=== PATIENT | male | born 1945 | race Two or more races ===

== ENCOUNTER 2021-10-24 09:18 | Inpatient (IN) | payer OTHER ==
[~2021-10-24] VITALS: Ht 175.3 cm; Wt 97.0 kg
[2021-10-24 10:46] LABS: Basophils # (auto) 0.1 10 ^3/uL (0-0.2); Basophils % (auto) 1.2 % (0.0-2.0); Eosinophils # (auto) 0 10 ^3/uL (0-0.8); Hematocrit 39.6 % (41.0-53.0); Lymphocytes # (auto) 0.5 10 ^3/uL (0.4-5.4); Mean Corpuscular Hgb Conc. 35.2 g/dL (32.0-36.0); Mean Corpuscular Volume 93.6 fL (80.0-100.0); Monocytes # (auto) 0.3 10 ^3/uL (0-1.3); Monocytes % (auto) 4.8 % (0.0-12.0); Neutrophils # (auto) 5.7 10 ^3/uL (1.6-8.6); Red Blood Cells 4.23 10^6/uL (4.5-5.90); Red Cell Distribution Width 12.7 % (11.8-14.3); White Blood Cell 6.5 10^3/uL (4.4-10.8)
[2021-10-24 11:02] LABS: Albumin 2.8 g/dL (3.4-5.0); Calcium 8.1 mg/dL (8.5-10.1); Potassium 4.2 mmol/L (3.5-5.1)
[2021-10-24 11:05] LABS: BUN/Creatinine Ratio 14.5; Bilirubin, Total 0.5 mg/dL (0.2-1.0); Total Protein 6.7 g/dL (6.4-8.2)
[2021-10-24] MEDS ORDERED: cefTRIAXone 1GM/50ML D5W 50 ML IV ONE (11:45)
[2021-10-24] MEDS ORDERED: AZITHROMYCIN 500MG/ 250ML 250 ML IV ONE (11:45)
[2021-10-24] MEDS ORDERED: DexAMETHasone SOD PHOS 10MG/1ML VIAL INJ IV ONE (11:45)
[2021-10-24] MEDS ORDERED: MORPHINE SULFATE INJECTION 2 MG/ML SYRG IV PRN ×3 (13:15→18:00)
[2021-10-24] MEDS ORDERED: NITROGLYCERIN 0.4 MG SL TAB SL PRN ×2 (13:15→18:00)
[2021-10-24] MEDS ORDERED: ALUM & MAG HYDROX-SIMETH LIQ(MAALOX) 30 ML PO PRN (18:00)
[2021-10-24] MEDS ORDERED: ONDANSETRON HCL 4 MG/2 ML VIAL IV PRN (18:00)
[2021-10-24] MEDS ORDERED: HYDROcodone-ACET 5/325MG TAB PO PRN (18:00)
[2021-10-24] MEDS ORDERED: DOCUSATE SOD 100 MG CAP PO PRN (18:00)
[2021-10-24] MEDS ORDERED: ACETAMINOPHEN 500 MG TAB PO PRN (18:00)
[2021-10-24] MEDS ORDERED: REMDESIVIR PER PHARMACY 0 ML IV SCH (18:00)
[2021-10-24] MEDS: CHOLECALCIFEROL (VITD3) 2,000 UNIT CAP/TAB PO SCH (18:11)
[2021-10-24] MEDS: ASCORBIC ACID 1,000 MG TAB PO SCH (18:11)
[2021-10-24] MEDS: ZINC SULFATE 220mg CAP or TAB PO SCH (18:11)
[2021-10-24] MEDS: FUROSEMIDE 20 MG/2 ML VIAL IV SCH (18:14)
[2021-10-24] MEDS ORDERED: DEXTROSE (50%) 50ML SYRG IV PRN (18:15)
[2021-10-24] MEDS ORDERED: METOPROLOL SUCCINATE XL 50 MG TAB PO ONE (18:15)
[2021-10-24] MEDS ORDERED: FAMOTIDINE (10MG/ML) 2ML VL IV ONE (18:15)
[2021-10-24 18:54] LABS: Basophils # (auto) 0 10 ^3/uL (0-0.2); Basophils % (auto) 0.6 % (0.0-2.0); Eosinophils # (auto) 0 10 ^3/uL (0-0.8); Hematocrit 38.8 % (41.0-53.0); Hemoglobin 13.4 g/dL (13.5-17.5); Lymphocytes # (auto) 0.2 10 ^3/uL (0.4-5.4); Mean Corpuscular Hemoglobin 32.5 pg (28.0-32.0); Mean Corpuscular Hgb Conc. 34.5 g/dL (32.0-36.0); Mean Corpuscular Volume 94.3 fL (80.0-100.0); Monocytes # (auto) 0.2 10 ^3/uL (0-1.3); Monocytes % (auto) 3.6 % (0.0-12.0); Neutrophils # (auto) 5.2 10 ^3/uL (1.6-8.6); Neutrophils % (auto) 91.8 % (37.0-80.0); Nucleated Red Blood Cells % 0.1 %; Red Blood Cells 4.11 10^6/uL (4.5-5.90); Red Cell Distribution Width 12.7 % (11.8-14.3); White Blood Cell 5.6 10^3/uL (4.4-10.8)
[2021-10-24 19:13] LABS: Lactic Acid w/Reflex 2.2 mmol/L (0.4-2.0); Potassium 4.6 mmol/L (3.5-5.1)
[2021-10-24 19:23] LABS: Cholesterol 62 mg/dL (< 200)
[2021-10-24 19:24] LABS: Albumin 2.5 g/dL (3.4-5.0); BUN/Creatinine Ratio 15.3; Bilirubin, Total 0.3 mg/dL (0.2-1.0); CRP High Sensitivity 8.57 mg/dL (< 0.3); Calcium 7.6 mg/dL (8.5-10.1); Total Protein 6.3 g/dL (6.4-8.2)
[2021-10-24 19:25] LABS: Thyroid Stimulating Hormone 0.5 uIU/mL (0.358-3.74)
[2021-10-24 19:28] LABS: HDL Cholesterol 28 mg/dL (40-59); LDL Cholesterol 30 mg/dL (< 100); Triglycerides 87 mg/dL (< 150)
[2021-10-24 20:00] VITALS: BP 117/64
[2021-10-24] MEDS ORDERED: REMDESIVIR 200 MG in NS 210ml LOADING DOSE ADULT IV ONE (20:00)
[2021-10-24] MEDS: BUDESONIDE (INHALATION) 180 MCG IH IN SCH (21:37)
[2021-10-24] MEDS: ALBUTEROL SULF HFA 90MCG INH 200DOSE IN PRN (21:37)
[2021-10-24 22:00] VITALS: BP 117/64
[2021-10-24] MEDS ORDERED: TEMAZEPAM 15 MG CAP PO PRN (22:00)
[2021-10-24] MEDS: DOXYCYCLINE 100MG/250ML 250 ML IV SCH (22:00)
[2021-10-24] MEDS: ATORVASTATIN 20 MG TAB PO SCH (22:17)
[2021-10-24] MEDS: POTASSIUM CHL 20 Meq TABLET PO SCH (22:17)
[2021-10-24] MEDS: ENOXAPARIN SOD 40 MG/0.4 ML SYRINGE SC SCH (22:18)
[2021-10-24] MEDS: ACCU-CHEK COMFORT CURVE STRIP VI SCH (22:19)
[2021-10-24] MEDS: InsuLIN REG 1unit/0.01ml Soln (100units/ml) SC SCH (22:30)
[2021-10-25] VITALS (7 sets, daily range): BP systolic 122–133; BP diastolic 61–69
[2021-10-25] MEDS: ALBUTEROL SULF HFA 90MCG INH 200DOSE IN PRN ×2 (06:00→19:33)
[2021-10-25] MEDS: FUROSEMIDE 20 MG/2 ML VIAL IV SCH ×2 (06:00→18:00)
[2021-10-25] MEDS: BUDESONIDE (INHALATION) 180 MCG IH IN SCH ×2 (06:00→19:33)
[2021-10-25] MEDS: ACCU-CHEK COMFORT CURVE STRIP VI SCH ×4 (06:36→22:16)
[2021-10-25] MEDS: InsuLIN REG 1unit/0.01ml Soln (100units/ml) SC SCH ×4 (06:40→22:19)
[2021-10-25 07:18] LABS: Albumin 2.4 g/dL (3.4-5.0); BUN/Creatinine Ratio 16.9; Calcium 8.2 mg/dL (8.5-10.1); Potassium 4.6 mmol/L (3.5-5.1)
[2021-10-25 07:19] LABS: Basophils # (auto) 0 10 ^3/uL (0-0.2); Basophils % (auto) 0.7 % (0.0-2.0); Eosinophils # (auto) 0 10 ^3/uL (0-0.8); Hematocrit 39.1 % (41.0-53.0); Hemoglobin 13.4 g/dL (13.5-17.5); Lymphocytes # (auto) 0.4 10 ^3/uL (0.4-5.4); Lymphocytes % (auto) 8.2 % (10.0-50.0); Mean Corpuscular Hemoglobin 32.6 pg (28.0-32.0); Mean Corpuscular Hgb Conc. 34.3 g/dL (32.0-36.0); Mean Corpuscular Volume 95.1 fL (80.0-100.0); Monocytes # (auto) 0.4 10 ^3/uL (0-1.3); Monocytes % (auto) 7.2 % (0.0-12.0); Neutrophils # (auto) 4.6 10 ^3/uL (1.6-8.6); Neutrophils % (auto) 83.9 % (37.0-80.0); Nucleated Red Blood Cells % 0.2 %; Red Blood Cells 4.11 10^6/uL (4.5-5.90); Red Cell Distribution Width 12.4 % (11.8-14.3); White Blood Cell 5.4 10^3/uL (4.4-10.8)
[2021-10-25 07:21] LABS: Bilirubin, Total 0.4 mg/dL (0.2-1.0); Total Protein 6.3 g/dL (6.4-8.2)
[2021-10-25] MEDS ORDERED: GLIP10TA9 PO (08:19)
[2021-10-25] MEDS ORDERED: ASPI1TAB20 PO (08:19)
[2021-10-25] MEDS ORDERED: LISI-716 PO (08:19)
[2021-10-25] MEDS ORDERED: METO25TA5 PO (08:19)
[2021-10-25] MEDS ORDERED: ROSU10TA16 PO (08:19)
[2021-10-25] MEDS: DexAMETHasone SOD PHOS 10MG/1ML VIAL INJ IV SCH (10:37)
[2021-10-25] MEDS: DOXYCYCLINE 100MG/250ML 250 ML IV SCH ×2 (10:37→22:15)
[2021-10-25] MEDS: ASPirin 81 mg TAB PO SCH (10:38)
[2021-10-25] MEDS: BENAZEPRIL HCL 10 MG TAB PO SCH (10:38)
[2021-10-25] MEDS: POTASSIUM CHL 20 Meq TABLET PO SCH ×2 (10:38→22:16)
[2021-10-25] MEDS: IVERMECTIN 3 MG TAB PO SCH (10:39)
[2021-10-25] MEDS: CHOLECALCIFEROL (VITD3) 2,000 UNIT CAP/TAB PO SCH (10:39)
[2021-10-25] MEDS: ASCORBIC ACID 1,000 MG TAB PO SCH (10:39)
[2021-10-25] MEDS: ENOXAPARIN SOD 40 MG/0.4 ML SYRINGE SC SCH ×2 (10:39→22:16)
[2021-10-25] MEDS: FAMOTIDINE (10MG/ML) 2ML VL IV SCH (11:21)
[2021-10-25] MEDS: METOPROLOL SUCCINATE XL 50 MG TAB PO SCH (11:22)
[2021-10-25] MEDS: ZINC SULFATE 220mg CAP or TAB PO SCH (12:40)
[2021-10-25] MEDS: REMDESIVIR 100mg 100 MG in SODIUM CHL 0.9% 230 ML IV SCH (15:43)
[2021-10-25] MEDS: ATORVASTATIN 20 MG TAB PO SCH (22:16)
[2021-10-26] VITALS (7 sets, daily range): BP systolic 108–144; BP diastolic 68–81
[2021-10-26] MEDS: FUROSEMIDE 20 MG/2 ML VIAL IV SCH ×2 (06:43→18:00)
[2021-10-26] MEDS: ACCU-CHEK COMFORT CURVE STRIP VI SCH ×4 (06:43→23:24)
[2021-10-26] MEDS: InsuLIN REG 1unit/0.01ml Soln (100units/ml) SC SCH ×4 (06:50→23:35)
[2021-10-26] MEDS: BUDESONIDE (INHALATION) 180 MCG IH IN SCH ×2 (07:04→20:58)
[2021-10-26 08:09] LABS: Albumin 2.7 g/dL (3.4-5.0); Calcium 8.5 mg/dL (8.5-10.1); Magnesium 3.3 mg/dL (1.6-2.6); Potassium 4.4 mmol/L (3.5-5.1)
[2021-10-26 08:18] LABS: BUN/Creatinine Ratio 24.6; Bilirubin, Total 0.5 mg/dL (0.2-1.0); CRP High Sensitivity 5.05 mg/dL (< 0.3); Total Protein 6.8 g/dL (6.4-8.2)
[2021-10-26 08:31] LABS: INR 1.08 (0.9-1.15)
[2021-10-26] MEDS: ASPirin 81 mg TAB PO SCH (10:05)
[2021-10-26] MEDS: ZINC SULFATE 220mg CAP or TAB PO SCH (10:05)
[2021-10-26] MEDS: POTASSIUM CHL 20 Meq TABLET PO SCH (10:06)
[2021-10-26] MEDS: IVERMECTIN 3 MG TAB PO SCH (10:07)
[2021-10-26] MEDS: BENAZEPRIL HCL 10 MG TAB PO SCH (10:07)
[2021-10-26] MEDS: METOPROLOL SUCCINATE XL 50 MG TAB PO SCH (10:08)
[2021-10-26] MEDS: ASCORBIC ACID 1,000 MG TAB PO SCH (10:08)
[2021-10-26] MEDS: CHOLECALCIFEROL (VITD3) 2,000 UNIT CAP/TAB PO SCH (10:09)
[2021-10-26] MEDS: ENOXAPARIN SOD 40 MG/0.4 ML SYRINGE SC SCH ×2 (10:10→22:19)
[2021-10-26] MEDS: FAMOTIDINE (10MG/ML) 2ML VL IV SCH (11:02)
[2021-10-26] MEDS: DOXYCYCLINE 100MG/250ML 250 ML IV SCH ×2 (11:02→22:18)
[2021-10-26] MEDS: DexAMETHasone SOD PHOS 10MG/1ML VIAL INJ IV SCH (11:02)
[2021-10-26] MEDS: REMDESIVIR 100mg 100 MG in SODIUM CHL 0.9% 230 ML IV SCH (16:11)
[2021-10-26] MEDS ORDERED: DEXTROSE (50%) 50ML SYRG IV PRN (16:15)
[2021-10-26] MEDS: ALBUTEROL SULF HFA 90MCG INH 200DOSE IN PRN (20:57)
[2021-10-26] MEDS ORDERED: INSULIN LANTUS (GLARGINE) 1 /0.01ml (100units/ml) SC SCH (22:00)
[2021-10-27] MEDS: ACCU-CHEK COMFORT CURVE STRIP VI SCH ×5 (04:29→22:56)
[2021-10-27] MEDS: InsuLIN REG 1unit/0.01ml Soln (100units/ml) SC SCH ×5 (04:33→22:55)
[2021-10-27 05:00] VITALS: BP 132/66
[2021-10-27] MEDS: FUROSEMIDE 20 MG/2 ML VIAL IV SCH ×2 (05:52→17:14)
[2021-10-27 07:11] LABS: Potassium 4.1 mmol/L (3.5-5.1)
[2021-10-27 07:12] LABS: Albumin 2.5 g/dL (3.4-5.0); Calcium 8.3 mg/dL (8.5-10.1)
[2021-10-27 07:18] LABS: BUN/Creatinine Ratio 28.8; Bilirubin, Total 0.4 mg/dL (0.2-1.0); Total Protein 6.2 g/dL (6.4-8.2)
[2021-10-27 09:00] VITALS: BP 119/73
[2021-10-27] MEDS: METOPROLOL SUCCINATE XL 50 MG TAB PO SCH (09:06)
[2021-10-27] MEDS: ENOXAPARIN SOD 40 MG/0.4 ML SYRINGE SC SCH ×2 (09:07→23:37)
[2021-10-27] MEDS: POTASSIUM CHL 20 Meq TABLET PO SCH (09:07)
[2021-10-27] MEDS: ASCORBIC ACID 1,000 MG TAB PO SCH (09:07)
[2021-10-27] MEDS: IVERMECTIN 3 MG TAB PO SCH (09:08)
[2021-10-27] MEDS: FAMOTIDINE (10MG/ML) 2ML VL IV SCH (09:09)
[2021-10-27] MEDS: ASPirin 81 mg TAB PO SCH (09:09)
[2021-10-27] MEDS: CHOLECALCIFEROL (VITD3) 2,000 UNIT CAP/TAB PO SCH (09:09)
[2021-10-27] MEDS: DexAMETHasone SOD PHOS 10MG/1ML VIAL INJ IV SCH (09:09)
[2021-10-27] MEDS: BENAZEPRIL HCL 10 MG TAB PO SCH (09:10)
[2021-10-27] MEDS: DOXYCYCLINE 100MG/250ML 250 ML IV SCH ×2 (09:25→21:16)
[2021-10-27] MEDS: ZINC SULFATE 220mg CAP or TAB PO SCH (09:25)
[2021-10-27 13:00] VITALS: BP_SYST 119; BP_SYST 138; BP_DIAS 71; BP_DIAS 73
[2021-10-27] MEDS: REMDESIVIR 100mg 100 MG in SODIUM CHL 0.9% 230 ML IV SCH (15:57)
[2021-10-27 17:00] VITALS: BP 143/77
[2021-10-27] MEDS: ALBUTEROL SULF HFA 90MCG INH 200DOSE IN PRN (19:07)
[2021-10-27] MEDS: BUDESONIDE (INHALATION) 180 MCG IH IN SCH (19:07)
[2021-10-27 22:00] VITALS: BP 122/72
[2021-10-27] MEDS: INSULIN LANTUS (GLARGINE) 1 /0.01ml (100units/ml) SC SCH (22:57)
[2021-10-28] VITALS (7 sets, daily range): BP systolic 96–131; BP diastolic 44–74
[2021-10-28] MEDS: InsuLIN REG 1unit/0.01ml Soln (100units/ml) SC SCH ×6 (01:28→21:06)
[2021-10-28] MEDS: ACCU-CHEK COMFORT CURVE STRIP VI SCH ×6 (05:31→21:07)
[2021-10-28] MEDS: FUROSEMIDE 20 MG/2 ML VIAL IV SCH ×2 (06:17→18:17)
[2021-10-28] MEDS: BUDESONIDE (INHALATION) 180 MCG IH IN SCH ×2 (10:00→21:38)
[2021-10-28] MEDS: ASCORBIC ACID 1,000 MG TAB PO SCH (10:30)
[2021-10-28] MEDS: IVERMECTIN 3 MG TAB PO SCH (10:30)
[2021-10-28] MEDS: ASPirin 81 mg TAB PO SCH (10:30)
[2021-10-28] MEDS: FAMOTIDINE (10MG/ML) 2ML VL IV SCH (10:30)
[2021-10-28] MEDS: BENAZEPRIL HCL 10 MG TAB PO SCH (10:30)
[2021-10-28] MEDS: ZINC SULFATE 220mg CAP or TAB PO SCH (10:30)
[2021-10-28] MEDS: CHOLECALCIFEROL (VITD3) 2,000 UNIT CAP/TAB PO SCH (10:30)
[2021-10-28] MEDS: DOXYCYCLINE 100MG/250ML 250 ML IV SCH ×2 (10:30→21:08)
[2021-10-28] MEDS: METOPROLOL SUCCINATE XL 50 MG TAB PO SCH (10:30)
[2021-10-28] MEDS: ENOXAPARIN SOD 40 MG/0.4 ML SYRINGE SC SCH ×2 (10:30→21:07)
[2021-10-28] MEDS: DexAMETHasone SOD PHOS 10MG/1ML VIAL INJ IV SCH (10:30)
[2021-10-28] MEDS: POTASSIUM CHL 20 Meq TABLET PO SCH (10:30)
[2021-10-28] MEDS: ALBUTEROL SULF HFA 90MCG INH 200DOSE IN PRN ×2 (10:49→21:38)
[2021-10-28] MEDS: REMDESIVIR 100mg 100 MG in SODIUM CHL 0.9% 230 ML IV SCH (15:00)
[2021-10-28] MEDS ORDERED: IOHEXOL 350 MG/ML 100ML IJ ONE (16:28)
[2021-10-28] MEDS: INSULIN LANTUS (GLARGINE) 1 /0.01ml (100units/ml) SC SCH (21:07)
[2021-10-29] MEDS: ACCU-CHEK COMFORT CURVE STRIP VI SCH ×6 (00:17→23:01)
[2021-10-29] MEDS: InsuLIN REG 1unit/0.01ml Soln (100units/ml) SC SCH ×6 (00:17→23:00)
[2021-10-29 05:00] VITALS: BP 131/62
[2021-10-29] MEDS: FUROSEMIDE 20 MG/2 ML VIAL IV SCH ×2 (05:01→18:11)
[2021-10-29 06:21] LABS: Basophils # (auto) 0 10 ^3/uL (0-0.2); Eosinophils # (auto) 0 10 ^3/uL (0-0.8); Hematocrit 47.2 % (41.0-53.0); Hemoglobin 15.9 g/dL (13.5-17.5); Lymphocytes # (auto) 0.7 10 ^3/uL (0.4-5.4); Lymphocytes % (auto) 7.4 % (10.0-50.0); Mean Corpuscular Hemoglobin 32.2 pg (28.0-32.0); Mean Corpuscular Hgb Conc. 33.7 g/dL (32.0-36.0); Mean Corpuscular Volume 95.4 fL (80.0-100.0); Monocytes # (auto) 0.6 10 ^3/uL (0-1.3); Monocytes % (auto) 6.5 % (0.0-12.0); Neutrophils # (auto) 7.6 10 ^3/uL (1.6-8.6); Neutrophils % (auto) 86.1 % (37.0-80.0); Nucleated Red Blood Cells % 0.5 %; Red Blood Cells 4.95 10^6/uL (4.5-5.90); Red Cell Distribution Width 12.7 % (11.8-14.3); White Blood Cell 8.8 10^3/uL (4.4-10.8)
[2021-10-29 06:29] LABS: INR 1.18 (0.9-1.15)
[2021-10-29 06:36] LABS: Calcium 8.5 mg/dL (8.5-10.1); Potassium 3.7 mmol/L (3.5-5.1)
[2021-10-29 06:48] LABS: Albumin 2.7 g/dL (3.4-5.0); BUN/Creatinine Ratio 31.3; Bilirubin, Total 0.6 mg/dL (0.2-1.0); CRP High Sensitivity 1.57 mg/dL (< 0.3); Magnesium 3.4 mg/dL (1.6-2.6); Total Protein 6.8 g/dL (6.4-8.2)
[2021-10-29] MEDS: ALBUTEROL SULF HFA 90MCG INH 200DOSE IN PRN ×2 (07:25→20:34)
[2021-10-29] MEDS: BUDESONIDE (INHALATION) 180 MCG IH IN SCH ×2 (07:25→20:34)
[2021-10-29 08:45] VITALS: BP 109/61
[2021-10-29] MEDS: DOXYCYCLINE 100MG/250ML 250 ML IV SCH (10:00)
[2021-10-29] MEDS: CHOLECALCIFEROL (VITD3) 2,000 UNIT CAP/TAB PO SCH (10:00)
[2021-10-29] MEDS: FAMOTIDINE (10MG/ML) 2ML VL IV SCH (10:00)
[2021-10-29] MEDS: ASCORBIC ACID 1,000 MG TAB PO SCH (10:00)
[2021-10-29] MEDS: BENAZEPRIL HCL 10 MG TAB PO SCH (10:00)
[2021-10-29] MEDS: ZINC SULFATE 220mg CAP or TAB PO SCH (10:00)
[2021-10-29] MEDS: METOPROLOL SUCCINATE XL 50 MG TAB PO SCH (10:00)
[2021-10-29] MEDS: DexAMETHasone SOD PHOS 10MG/1ML VIAL INJ IV SCH ×2 (10:00→21:00)
[2021-10-29] MEDS: ENOXAPARIN SOD 40 MG/0.4 ML SYRINGE SC SCH ×2 (10:00→21:00)
[2021-10-29] MEDS: ASPirin 81 mg TAB PO SCH (10:00)
[2021-10-29] MEDS: IVERMECTIN 3 MG TAB PO SCH (10:00)
[2021-10-29] MEDS: POTASSIUM CHL 20 Meq TABLET PO SCH (10:00)
[2021-10-29 13:00] VITALS: BP 92/65
[2021-10-29] MEDS ORDERED: SODIUM CHLORIDE 0.9% 1,000 ML IV ONE (15:00)
[2021-10-29] MEDS ORDERED: DEXTROSE (50%) 50ML SYRG IV PRN (15:15)
[2021-10-29 17:00] VITALS: BP 108/72
[2021-10-29 21:43] VITALS: BP 104/66
[2021-10-29] MEDS: INSULIN LANTUS (GLARGINE) 1 /0.01ml (100units/ml) SC SCH (23:00)
[2021-10-30 05:00] VITALS: BP 117/66
[2021-10-30] MEDS: ACCU-CHEK COMFORT CURVE STRIP VI SCH ×4 (05:28→23:24)
[2021-10-30] MEDS: FUROSEMIDE 20 MG/2 ML VIAL IV SCH ×2 (05:28→18:00)
[2021-10-30] MEDS: InsuLIN REG 1unit/0.01ml Soln (100units/ml) SC SCH ×4 (05:29→23:24)
[2021-10-30 07:06] LABS: INR 1.18 (0.9-1.15)
[2021-10-30] MEDS: ALBUTEROL SULF HFA 90MCG INH 200DOSE IN PRN ×2 (07:15→23:49)
[2021-10-30] MEDS: BUDESONIDE (INHALATION) 180 MCG IH IN SCH ×2 (07:15→22:31)
[2021-10-30 07:57] LABS: Albumin 2.5 g/dL (3.4-5.0); BUN/Creatinine Ratio 38.3; Bilirubin, Total 0.7 mg/dL (0.2-1.0); Calcium 8.5 mg/dL (8.5-10.1); Potassium 4.5 mmol/L (3.5-5.1); Total Protein 6.6 g/dL (6.4-8.2)
[2021-10-30 08:52] VITALS: BP 111/70
[2021-10-30] MEDS: ASPirin 81 mg TAB PO SCH (09:30)
[2021-10-30] MEDS: ASCORBIC ACID 1,000 MG TAB PO SCH (09:30)
[2021-10-30] MEDS: CHOLECALCIFEROL (VITD3) 2,000 UNIT CAP/TAB PO SCH (09:30)
[2021-10-30] MEDS: POTASSIUM CHL 20 Meq TABLET PO SCH (09:30)
[2021-10-30] MEDS: ENOXAPARIN SOD 40 MG/0.4 ML SYRINGE SC SCH ×2 (09:31→23:24)
[2021-10-30] MEDS: ZINC SULFATE 220mg CAP or TAB PO SCH (09:31)
[2021-10-30] MEDS: DexAMETHasone SOD PHOS 10MG/1ML VIAL INJ IV SCH ×2 (09:31→23:23)
[2021-10-30] MEDS: FAMOTIDINE (10MG/ML) 2ML VL IV SCH (09:31)
[2021-10-30 12:43] VITALS: BP 113/75
[2021-10-30 16:00] VITALS: BP 110/69
[2021-10-30 22:00] VITALS: BP 116/74
[2021-10-30] MEDS: INSULIN LANTUS (GLARGINE) 1 /0.01ml (100units/ml) SC SCH (23:23)
[2021-10-31 05:00] VITALS: BP 118/69
[2021-10-31] MEDS: ACCU-CHEK COMFORT CURVE STRIP VI SCH ×4 (06:01→23:10)
[2021-10-31 06:06] LABS: Basophils # (auto) 0 10 ^3/uL (0-0.2); Basophils % (auto) 0.3 % (0.0-2.0); Eosinophils # (auto) 0 10 ^3/uL (0-0.8); Hematocrit 44.3 % (41.0-53.0); Hemoglobin 15.2 g/dL (13.5-17.5); Lymphocytes # (auto) 0.5 10 ^3/uL (0.4-5.4); Lymphocytes % (auto) 5.5 % (10.0-50.0); Mean Corpuscular Hemoglobin 32.3 pg (28.0-32.0); Mean Corpuscular Hgb Conc. 34.2 g/dL (32.0-36.0); Mean Corpuscular Volume 94.2 fL (80.0-100.0); Monocytes # (auto) 0.4 10 ^3/uL (0-1.3); Monocytes % (auto) 4.4 % (0.0-12.0); Neutrophils # (auto) 7.9 10 ^3/uL (1.6-8.6); Neutrophils % (auto) 89.8 % (37.0-80.0); Nucleated Red Blood Cells % 0.1 %; Red Blood Cells 4.71 10^6/uL (4.5-5.90); Red Cell Distribution Width 12.4 % (11.8-14.3); White Blood Cell 8.7 10^3/uL (4.4-10.8)
[2021-10-31] MEDS: InsuLIN REG 1unit/0.01ml Soln (100units/ml) SC SCH ×4 (06:07→23:11)
[2021-10-31] MEDS: FUROSEMIDE 20 MG/2 ML VIAL IV SCH (06:08)
[2021-10-31 06:27] LABS: Albumin 2.5 g/dL (3.4-5.0); Calcium 8.5 mg/dL (8.5-10.1); Magnesium 3.7 mg/dL (1.6-2.6); Potassium 4.3 mmol/L (3.5-5.1)
[2021-10-31 06:28] LABS: INR 1.14 (0.9-1.15)
[2021-10-31 06:31] LABS: BUN/Creatinine Ratio 41.8; Bilirubin, Total 0.7 mg/dL (0.2-1.0); Total Protein 6.4 g/dL (6.4-8.2)
[2021-10-31 09:00] VITALS: BP 110/70
[2021-10-31] MEDS: ENOXAPARIN SOD 40 MG/0.4 ML SYRINGE SC SCH ×2 (09:10→21:45)
[2021-10-31] MEDS: POTASSIUM CHL 20 Meq TABLET PO SCH (09:10)
[2021-10-31] MEDS: DexAMETHasone SOD PHOS 10MG/1ML VIAL INJ IV SCH (09:10)
[2021-10-31] MEDS: CHOLECALCIFEROL (VITD3) 2,000 UNIT CAP/TAB PO SCH (09:10)
[2021-10-31] MEDS: ASPirin 81 mg TAB PO SCH (09:10)
[2021-10-31] MEDS: FAMOTIDINE (10MG/ML) 2ML VL IV SCH (09:10)
[2021-10-31] MEDS: ZINC SULFATE 220mg CAP or TAB PO SCH (09:10)
[2021-10-31] MEDS: ASCORBIC ACID 1,000 MG TAB PO SCH (09:11)
[2021-10-31] MEDS: BUDESONIDE (INHALATION) 180 MCG IH IN SCH ×2 (10:00→19:51)
[2021-10-31 13:00] VITALS: BP 133/88
[2021-10-31] MEDS: ALBUTEROL SULF HFA 90MCG INH 200DOSE IN PRN ×2 (16:09→20:41)
[2021-10-31 17:00] VITALS: BP 121/78
[2021-10-31 22:31] VITALS: BP 121/85
[2021-10-31] MEDS: INSULIN LANTUS (GLARGINE) 1 /0.01ml (100units/ml) SC SCH (23:15)
[2021-11-01 05:11] VITALS: BP 123/77
[2021-11-01] MEDS: ACCU-CHEK COMFORT CURVE STRIP VI SCH ×3 (06:43→17:47)
[2021-11-01] MEDS: InsuLIN REG 1unit/0.01ml Soln (100units/ml) SC SCH ×3 (06:44→17:53)
[2021-11-01] MEDS: BUDESONIDE (INHALATION) 180 MCG IH IN SCH ×2 (08:16→20:52)
[2021-11-01] MEDS: ALBUTEROL SULF HFA 90MCG INH 200DOSE IN PRN ×2 (08:16→20:52)
[2021-11-01 09:00] VITALS: BP 131/74
[2021-11-01] MEDS: DexAMETHasone SOD PHOS 4 MG/1ML SDV INJ IV SCH (10:29)
[2021-11-01] MEDS: ENOXAPARIN SOD 40 MG/0.4 ML SYRINGE SC SCH ×2 (10:30→21:37)
[2021-11-01] MEDS: FAMOTIDINE (10MG/ML) 2ML VL IV SCH (10:30)
[2021-11-01] MEDS: FUROSEMIDE 20 MG/2 ML VIAL IV SCH (10:30)
[2021-11-01] MEDS: POTASSIUM CHL 20 Meq TABLET PO SCH (10:30)
[2021-11-01] MEDS: ASPirin 81 mg TAB PO SCH (10:30)
[2021-11-01 13:00] VITALS: BP 111/83
[2021-11-01 17:00] VITALS: BP 131/77
[2021-11-01] MEDS: INSULIN LANTUS (GLARGINE) 1 /0.01ml (100units/ml) SC SCH (21:36)
[2021-11-01 22:00] VITALS: BP 119/76
[2021-11-02] VITALS (7 sets, daily range): BP systolic 103–138; BP diastolic 67–74
[2021-11-02] MEDS: ACCU-CHEK COMFORT CURVE STRIP VI SCH ×4 (00:16→18:04)
[2021-11-02] MEDS: InsuLIN REG 1unit/0.01ml Soln (100units/ml) SC SCH ×4 (00:18→18:10)
[2021-11-02] MEDS: DexAMETHasone SOD PHOS 4 MG/1ML SDV INJ IV SCH (09:40)
[2021-11-02] MEDS: FAMOTIDINE (10MG/ML) 2ML VL IV SCH (09:41)
[2021-11-02] MEDS: FUROSEMIDE 20 MG/2 ML VIAL IV SCH (09:41)
[2021-11-02] MEDS: ASPirin 81 mg TAB PO SCH (09:41)
[2021-11-02] MEDS: ENOXAPARIN SOD 40 MG/0.4 ML SYRINGE SC SCH ×2 (09:42→22:08)
[2021-11-02] MEDS: POTASSIUM CHL 20 Meq TABLET PO SCH (09:42)
[2021-11-02] MEDS: ALBUTEROL SULF HFA 90MCG INH 200DOSE IN PRN (09:43)
[2021-11-02] MEDS: BUDESONIDE (INHALATION) 180 MCG IH IN SCH ×2 (09:43→22:00)
[2021-11-02] MEDS: INSULIN LANTUS (GLARGINE) 1 /0.01ml (100units/ml) SC SCH (22:07)
[2021-11-03] MEDS: ACCU-CHEK COMFORT CURVE STRIP VI SCH ×5 (00:20→23:11)
[2021-11-03] MEDS: InsuLIN REG 1unit/0.01ml Soln (100units/ml) SC SCH ×5 (00:21→23:10)
[2021-11-03] MEDS: ALBUTEROL SULF HFA 90MCG INH 200DOSE IN PRN ×3 (03:00→19:15)
[2021-11-03 05:00] VITALS: BP 128/66
[2021-11-03 09:00] VITALS: BP 120/77
[2021-11-03] MEDS: DexAMETHasone SOD PHOS 4 MG/1ML SDV INJ IV SCH (09:14)
[2021-11-03] MEDS: FUROSEMIDE 20 MG/2 ML VIAL IV SCH (09:15)
[2021-11-03] MEDS: FAMOTIDINE (10MG/ML) 2ML VL IV SCH (09:15)
[2021-11-03] MEDS: POTASSIUM CHL 20 Meq TABLET PO SCH (09:16)
[2021-11-03] MEDS: ENOXAPARIN SOD 40 MG/0.4 ML SYRINGE SC SCH ×2 (09:16→21:45)
[2021-11-03] MEDS: ASPirin 81 mg TAB PO SCH (09:16)
[2021-11-03] MEDS: BUDESONIDE (INHALATION) 180 MCG IH IN SCH ×2 (11:16→19:15)
[2021-11-03 13:00] VITALS: BP 105/65
[2021-11-03 17:00] VITALS: BP 113/67
[2021-11-03 22:00] VITALS: BP 107/71
[2021-11-03] MEDS: INSULIN LANTUS (GLARGINE) 1 /0.01ml (100units/ml) SC SCH (23:10)
[2021-11-04] MEDS: InsuLIN REG 1unit/0.01ml Soln (100units/ml) SC SCH ×4 (06:00→23:21)
[2021-11-04] MEDS: ALBUTEROL SULF HFA 90MCG INH 200DOSE IN PRN ×2 (06:05→19:53)
[2021-11-04] MEDS: BUDESONIDE (INHALATION) 180 MCG IH IN SCH ×2 (06:05→19:53)
[2021-11-04] MEDS: ACCU-CHEK COMFORT CURVE STRIP VI SCH ×4 (06:12→23:23)
[2021-11-04 07:10] LABS: Basophils # (auto) 0 10 ^3/uL (0-0.2); Basophils % (auto) 0.2 % (0.0-2.0); Eosinophils # (auto) 0 10 ^3/uL (0-0.8); Eosinophils % (auto) 0.5 % (0.0-7.0); Hematocrit 41.3 % (41.0-53.0); Hemoglobin 14.2 g/dL (13.5-17.5); Lymphocytes # (auto) 0.8 10 ^3/uL (0.4-5.4); Lymphocytes % (auto) 10.1 % (10.0-50.0); Mean Corpuscular Hemoglobin 32.6 pg (28.0-32.0); Mean Corpuscular Hgb Conc. 34.5 g/dL (32.0-36.0); Mean Corpuscular Volume 94.5 fL (80.0-100.0); Monocytes # (auto) 0.7 10 ^3/uL (0-1.3); Monocytes % (auto) 8.9 % (0.0-12.0); Neutrophils # (auto) 6.6 10 ^3/uL (1.6-8.6); Neutrophils % (auto) 80.3 % (37.0-80.0); Red Blood Cells 4.37 10^6/uL (4.5-5.90); Red Cell Distribution Width 12.4 % (11.8-14.3); White Blood Cell 8.3 10^3/uL (4.4-10.8)
[2021-11-04 08:08] LABS: Albumin 2.2 g/dL (3.4-5.0); BUN/Creatinine Ratio 36.8; Bilirubin, Total 0.7 mg/dL (0.2-1.0); CRP High Sensitivity 0.38 mg/dL (< 0.3); Calcium 8.3 mg/dL (8.5-10.1); Potassium 4.1 mmol/L (3.5-5.1); Total Protein 5.4 g/dL (6.4-8.2)
[2021-11-04] MEDS: DexAMETHasone SOD PHOS 4 MG/1ML SDV INJ IV SCH (09:03)
[2021-11-04] MEDS: FUROSEMIDE 20 MG/2 ML VIAL IV SCH (09:04)
[2021-11-04] MEDS: FAMOTIDINE (10MG/ML) 2ML VL IV SCH (09:05)
[2021-11-04] MEDS: ASPirin 81 mg TAB PO SCH (09:05)
[2021-11-04] MEDS: POTASSIUM CHL 20 Meq TABLET PO SCH (09:06)
[2021-11-04] MEDS: ENOXAPARIN SOD 40 MG/0.4 ML SYRINGE SC SCH ×2 (09:06→21:37)
[2021-11-04 16:09] VITALS: BP 120/67
[2021-11-04 22:00] VITALS: BP 104/74
[2021-11-04] MEDS: INSULIN LANTUS (GLARGINE) 1 /0.01ml (100units/ml) SC SCH (23:19)
[2021-11-05] MEDS ORDERED: DEX4T PO (00:49)
[2021-11-05] MEDS ORDERED: ALBUAER3 IN (00:49)
[2021-11-05] MEDS ORDERED: DOXY-286 PO (00:49)
[2021-11-05] MEDS ORDERED: ZINC220T6 PO (00:49)
[2021-11-05] MEDS ORDERED: FAMO20TA10 PO (00:49)
[2021-11-05] MEDS ORDERED: ASCO500T11 PO (00:49)
[2021-11-05 04:52] VITALS: BP_SYST 108; BP_SYST 118; BP_DIAS 69; BP_DIAS 78
[2021-11-05] MEDS: InsuLIN REG 1unit/0.01ml Soln (100units/ml) SC SCH ×3 (06:00→17:13)
[2021-11-05] MEDS: ACCU-CHEK COMFORT CURVE STRIP VI SCH ×3 (06:16→17:56)
[2021-11-05 08:00] VITALS: BP 121/61
[2021-11-05] MEDS: FUROSEMIDE 20 MG/2 ML VIAL IV SCH (09:32)
[2021-11-05] MEDS: ASPirin 81 mg TAB PO SCH (09:32)
[2021-11-05] MEDS: FAMOTIDINE (10MG/ML) 2ML VL IV SCH (09:32)
[2021-11-05] MEDS: ENOXAPARIN SOD 40 MG/0.4 ML SYRINGE SC SCH (09:33)
[2021-11-05] MEDS: DexAMETHasone SOD PHOS 4 MG/1ML SDV INJ IV SCH (09:34)
[2021-11-05] MEDS: POTASSIUM CHL 20 Meq TABLET PO SCH (09:34)
[2021-11-05] MEDS: BUDESONIDE (INHALATION) 180 MCG IH IN SCH (11:19)
[2021-11-05] MEDS: ALBUTEROL SULF HFA 90MCG INH 200DOSE IN PRN (11:19)
[2021-11-05 12:00] VITALS: BP 131/70
[2021-11-05 15:55] VITALS: BP 115/64
== END 2021-11-05 20:05 | disposition home or self-care (01) | DRG 871 ==
LOC: EDBD 09:18 → ER 09:18 → TELE 13:09 → TELE-WESTW 16:50 → TELE-EAST 11-05 17:27
PROVIDERS: ADMIT Hospitalist; ATTEND Internal Medicine
PROC: XW033E5 Introduction of Remdesivir Anti-infective into Peripheral Vein, Percutaneous Approach, New Technology Group 5 (ICD-10-PCS; principal; 2021-10-24)
DX: A41.89 Other specified sepsis (principal); J12.82 Pneumonia due to coronavirus disease 2019; J96.01 Acute respiratory failure with hypoxia; U07.1 COVID-19; N17.0 Acute kidney failure with tubular necrosis; D89.839 Cytokine release syndrome, grade unspecified; E11.9 Type 2 diabetes mellitus without complications; I10 Essential (primary) hypertension; E66.01 Morbid (severe) obesity due to excess calories; E88.09 Other disorders of plasma-protein metabolism, not elsewhere classified; Z68.31 Body mass index [BMI] 31.0-31.9, adult
CPT/HCPCS: 36415; 36600; 71045; 71275; 80053; 80061; 82306; 82728; 82805; 82962; 83036; 83605; 83615; 83735; 84443; 84484; 85025; 85379; 85610; 86141; 87040; 87426; 93005; 93970; 94640; 96365; 96368; 96375; 99291; G0378; J0696; J1100; J1815; J3490